=== PATIENT | female | born 1975 | race Caucasian/White ===

== ENCOUNTER 2020-06-11 11:38 | Outpatient (CLI) | payer OTHER, SELFPAY ==
--- NOTE | ~2020-06-11 | US_ITS ---
US breast BI limited 06/11/2020 12:21 Indication: Bilateral masses visualized on prior outside examination. Biopsy requested. Procedure: High-resolution Limited bilateral breast ultrasound Comparison: No prior studies for comparison. Findings: Dr. Green was present during the examination for real-time imaging. Right breast: At 8:00, 2 cm from the nipple there is an oval hypoechoic mass with circumscribed margins, parallel orientation , no significant posterior features and no internal vascularity, measuring 5 x 5 x 2 mm. At 10:00 the re is heterogeneous soft tissue without discrete mass. When imaging on orthogonal planes this soft ti ssue appears to blend in with surrounding breast parenchyma, compatible with superimposed fibroglandu lar tissue. In the left breast at 10:00, 4 cm from the nipple there is heterogeneous predominantly hi p hyperechoic soft tissue without discrete mass on either orthogonal view. Impression: 1: Probable benign bilateral breast findings. No suspicious findings in either breast were identified to necessitate breast biopsy at this time. BI-RADS CATEGORY 3-PROBABLY BENIGN FINDING RECOMMENDATION: Six-month follow-up diagnostic bilateral mammogram and targeted ultrasound recommende d. Reviewed, dictated and finalized at location A. Impression: 1: Probable benign bilateral breast findings. No suspicious findings in either breast were identified to necessitate breast biopsy at this time. BI-RADS CATEGORY 3-PROBABLY BENIGN FINDING RECOMMENDATION: Six-month follow-up diagnostic bilateral mammogram and targeted ultrasound recommended.
== END 2020-06-11 11:39 | disposition home or self-care (01) ==
PROVIDERS: PCP Internal Medicine; Visit Provider Surgery
DX: R92.8 Other abnormal and inconclusive findings on diagnostic imaging of breast (principal)
CPT/HCPCS: 76642